=== PATIENT | male | born 1970 | race African-American/Black ===

== ENCOUNTER 2020-02-20 09:10 | Emergency (ER) | payer BC, OTHER ==
[~2020-02-20] VITALS: Ht 170.2 cm; Wt 77.1 kg
[2020-02-20] MEDS ORDERED: cefTRIAXone SOD 1,000 MG VL IM ONE (10:00)
[2020-02-20] MEDS ORDERED: ACETAMINOPHEN 500 MG TAB PO ONE ×2 (10:00→10:09)
[2020-02-20 10:25] VITALS: BP 118/55
== END 2020-02-20 11:35 | disposition home or self-care (01) ==
LOC: ER 09:10
DX: U07.1 COVID-19 (principal); J03.90 Acute tonsillitis, unspecified
CPT/HCPCS: 36415; 71045; 87426; 96372; 99284; J0696